=== PATIENT | male | born 1995 | race Caucasian/White ===

== ENCOUNTER 2016-09-12 18:08 | Emergency (ER) | payer OTHER ==
[~2016-09-12] VITALS: Ht 185.4 cm; Wt 79.4 kg
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
[2016-09-12] MEDS ORDERED: ACETAMINOPHEN 500 MG TAB (TYLENOL) PO STA (21:20)
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
[2016-09-12 22:32] VITALS: BP 132/70
[2016-09-12] MEDS ORDERED: CYCL10TA9 PO (22:32)
== END 2016-09-12 22:39 | disposition home or self-care (01) ==
LOC: EDUNIT# 18:08 → ER 18:10
DX: S09.90XA Unspecified injury of head, initial encounter (principal); V43.92XA Unspecified car occupant injured in collision with other type car in traffic accident, initial encounter; Y92.414 Local residential or business street as the place of occurrence of the external cause; Y99.8 Other external cause status
CPT/HCPCS: 70450; 72125; 99282

== ENCOUNTER 2016-09-26 22:02 | Emergency (ER) | payer OTHER ==
[~2016-09-26] VITALS: Ht 185.4 cm; Wt 79.4 kg
[~2016-09-26 22:02] MED LIST: CYCL10TA9 PO
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
[2016-09-26] MEDS ORDERED: CYCL10TA9 PO (23:31)
[2016-09-26] MEDS ORDERED: NAPR550T PO (23:31)
[2016-09-26] MEDS ORDERED: MELOXICAM 7.5 MG (MOBIC) TABLET PO ONE (23:44)
[2016-09-26 23:49] VITALS: BP 132/71
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
[2016-09-27] MEDS ORDERED: MELOXICAM 7.5 MG (MOBIC) TABLET PO SCH (09:00)
== END 2016-09-26 23:49 | disposition home or self-care (01) ==
LOC: EDUNIT# 22:02 → ER 22:03
DX: S23.3XXA Sprain of ligaments of thoracic spine, initial encounter (principal); V43.52XA Car driver injured in collision with other type car in traffic accident, initial encounter; Y92.414 Local residential or business street as the place of occurrence of the external cause; Y99.8 Other external cause status
CPT/HCPCS: 71250; 72128; 99282